=== PATIENT | male | born 1990 | race African-American/Black ===

== ENCOUNTER 2020-07-13 19:04 | Emergency (ER) | payer OTHER, SELFPAY ==
[2020-07-13 19:17] VITALS: BP 124/78; PULSE 66; RESP 20; TEMP 36.3; O2SAT 100
--- NOTE | 2020-07-13 19:54 | ED.GENADULT ---
HPI - General Adult General Chief complaint: Urogenital-Male <Armando Lim PA-C - Last Filed: 07/13/20 19:58> Stated complaint: exp to STD <Armando Lim PA-C - Last Filed: 07/13/20 19:58> Time Seen by Provider: 07/13/20 19:36 <Armando Lim PA-C - Last Filed: 07/13/20 19:58> Source: patient <Armando Lim PA-C - Last Filed: 07/13/20 19:58> Mode of arrival: ambulatory <Armando Lim PA-C - Last Filed: 07/13/20 19:58> Limitations: no limitations <Armando Lim PA-C - Last Filed: 07/13/20 19:58> History of Present Illness HPI narrative: Patient is a 29-year-old male who presents to emergency department for evaluation of concern for possible gonorrhea patient notes that he was with a sexual partner stating that she had gonorrhea and chlamydia patient notes he has had some slight discharge and irritation with urination. Patient denies fever vomiting or other complaints presents in no distress would like to be tested and treated for STDs <Armando Lim PA-C - Last Filed: 07/13/20 19:58> Related Data Allergies/adverse reactions: Allergies Allergy/AdvReac Type Severity Reaction Status Date / Time No Known Allergies Allergy Unverified 08/30/13 07:38 <Armando Lim PA-C - Last Filed: 07/13/20 19:58> Review of Systems Review of Systems: All systems reviewed & are unremarkable except as noted in HPI and below <Armando Lim PA-C - Last Filed: 07/13/20 19:58> [facility] Social History Social History: Social History (Updated 07/13/20 @ 19:55 by Armando Lim PA-C) Smoking status: Current every day smoker <Armando Lim PA-C - Last Filed: 07/13/20 19:58> Exam Narrative: Exam Narrative: GENERAL: Well-appearing, well-nourished, and in no acute distress. HEAD: Normocephalic, atraumatic. EYES: PERRLA and EOMI. ENT: Nares clear, no rhinorrhea or epistaxis. Mucous membranes moist. CHEST: Clear to auscultation. No respiratory distress. No wheezes rales or rhonchi HEART: Regular rate and rhythm. No murmur heard. EXTREMITIES: Normal range of motion. No edema. SKIN: Warm, dry, no rash. NEURO: No focal deficits. Alert and oriented x3. PSYCH: Normal mood and affect. <Armando Lim PA-C - Last Filed: 07/13/20 19:58> Course Course Emergency Course: Patient tested and treated for STDs afebrile nontoxic-appearing no distress will be discharged with outpatient follow-up agreeing to follow with primary care <Armando Lim PA-C - Last Filed: 07/13/20 19:58> Vital Signs Vital signs: Vital Signs Temperature 97.4 F L 07/13/20 19:17 Pulse Rate 66 07/13/20 19:17 Respiratory Rate 20 07/13/20 19:17 Blood Pressure 124/78 07/13/20 19:17 Pulse Oximetry 100 07/13/20 19:17 Temperature 97.4 F L 07/13/20 19:17 Pulse Rate 70 07/13/20 20:37 Respiratory Rate 18 07/13/20 20:37 Blood Pressure 119/75 07/13/20 20:37 Pulse Oximetry 99 07/13/20 20:37 <Armando Lim PA-C - Last Filed: 07/13/20 19:58> Vital Signs Temperature 97.4 F L 07/13/20 19:17 Pulse Rate 66 07/13/20 19:17 Respiratory Rate 20 07/13/20 19:17 Blood Pressure 124/78 07/13/20 19:17 Pulse Oximetry 100 07/13/20 19:17 Temperature 97.4 F L 07/13/20 19:17 Pulse Rate 70 07/13/20 20:37 Respiratory Rate 18 07/13/20 20:37 Blood Pressure 119/75 07/13/20 20:37 Pulse Oximetry 99 07/13/20 20:37 <Diamante Mcdermott MD - Last Filed: 07/17/20 06:59> Medical Decision Making MDM Narrative Medical decision making narrative: Patient tested and treated for urethritis will be discharged home felt appropriate for outpatient reevaluation <NIYA Zaragoza Last Filed: 07/13/20 19:58> Vital Signs Vital Signs: Vital Signs Temperature 97.4 F L 07/13/20 19:17 Pulse Rate 66 07/13/20 19:17 Respiratory Rate 20 07/13/20 19:17 Blood Pressure 124/78 07/13/20 19:17 Pulse Oximetry 100
[2020-07-13] MEDS: cefTRIAXone 250 MG VIAL 500 MG IM (20:28)
[2020-07-13 20:37] VITALS: BP 119/75; PULSE 70; RESP 18; O2SAT 99
== END 2020-07-13 20:39 | disposition home or self-care (01) ==
PROVIDERS: Emergency Medicine Emergency Medical Services; Emergency Provider General Practice; PCP Family Medicine
DX: N34.2 Other urethritis (principal); F17.200 Nicotine dependence, unspecified, uncomplicated
CPT/HCPCS: 87491; 87591; 96372; 99283; J0696

== ENCOUNTER 2020-09-06 16:31 | Outpatient (CLI) | payer OTHER, SELFPAY ==
--- NOTE | ~2020-09-06 | XR_ITS ---
EXAMINATION: XR shoulder RT min 2V DATE: 09/06/2020 16:53 INDICATION: Right shoulder pain. TECHNIQUE: 4 views of right shoulder were obtained. COMPARISON: None. FINDINGS: Bone alignment is normal. No fracture. There is mild osteoarthritis of acromioclavicular praveena int. Glenohumeral joint is normal. IMPRESSION: 1. Mild osteoarthritis of acromioclavicular joint. Reviewed, dictated and finalized at location A.
== END 2020-09-06 16:32 | disposition home or self-care (01) ==
PROVIDERS: PCP Nurse Practitioner Family; Visit Provider Nurse Practitioner Family
DX: M19.011 Primary osteoarthritis, right shoulder (principal)
CPT/HCPCS: 73030

== ENCOUNTER 2021-08-31 10:33 | Outpatient (CLI) | payer OTHER, SELFPAY ==
--- NOTE | ~2021-08-31 | XR_ITS ---
XR knee LT 3V DATE: 08/31/2021 11:02 INDICATION: Bilateral knee pain TECHNIQUE: AP, lateral, sunrise views COMPARISON: None FINDINGS: Mild superior pole patellar enthesopathy at insertion of quadriceps tendon. No fracture or dislocation or joint effusion. No periosteal reaction or bone destruction. There is mild periarticular spurring at the medial compartment. IMPRESSION: Mild superior pole patellar enthesopathy Mild osteoarthritis at medial compartment Reviewed, dictated and finalized at location A.
--- NOTE | ~2021-08-31 | XR_ITS ---
XR shoulder RT min 2V DATE: 08/31/2021 11:02 INDICATION: Acute right shoulder pain TECHNIQUE: 4 views COMPARISON: 09/06/2020 right shoulder FINDINGS: No fracture, dislocation, periosteal reaction or bone destruction or abnormal soft tissue c alcification. Normal alignment at the acromioclavicular and glenohumeral joints. IMPRESSION: Negative Reviewed, dictated and finalized at location A. IMPRESSION: Negative
--- NOTE | ~2021-08-31 | XR_ITS ---
XR knee RT 3V DATE: 08/31/2021 11:02 INDICATION: Acute right shoulder pain. Bilateral knee pain. TECHNIQUE: [place] and AP and lateral views COMPARISON: None FINDINGS: Superior pole patellar enthesopathy at quadriceps tendon insertion. No fracture or dislocation or joint effusion. No periosteal reaction or bone destruction. Joint spaces are relatively preserved. No radiopaque intra-articular loose body or chondrocalcinosis. IMPRESSION: Superior pole patellar enthesopathy Reviewed, dictated and finalized at location A.
== END 2021-08-31 10:34 | disposition home or self-care (01) ==
LOC: ANHIMG 10:38
PROVIDERS: PCP Internal Medicine; Visit Provider Internal Medicine
DX: M25.511 Pain in right shoulder (principal); M17.12 Unilateral primary osteoarthritis, left knee
CPT/HCPCS: 73030; 73562

== ENCOUNTER 2023-08-22 07:27 | Emergency (ER) | payer OTHER, SELFPAY ==
[2023-08-22 07:33] VITALS: BP 154/93; PULSE 71; RESP 18; TEMP 36.3; O2SAT 98
--- NOTE | 2023-08-22 07:43 | ED.MALEGU ---
HPI - Male Genitourinary General Chief complaint: Urogenital-Male Stated complaint: sti check Time Seen by Provider: 08/22/23 07:34 History of Present Illness HPI Narrative: Patient presents for STD testing and treatment, his partner found out she had chlamydia. Patient denies any dysuria, rash, penile discharge. States that he just feels weird down there Related Data Allergies Allergy/AdvReac Type Severity Reaction Status Date / Time No Known Allergies Allergy Unverified 08/30/13 07:38 Review of Systems Review of Systems: CONST: No fever. HEENT: No sore throat C/V: No chest pain RESP: No cough GI: No Abdominal pain : No dysuria. M/S: No joint pain. SKIN: No rash. NEURO: [No headache or focal numbness or weakness] PSYCH: [No depression] [facility] Social History Social History (Updated 07/13/20 @ 19:55 by Armando Lim, NIYA) Smoking status: Current every day smoker Exam Narrative: EXAMINATION OF ORGAN SYSTEMS/BODY AREAS: Constitutional: Vital signs per nursing GENERAL:[No acute distress, non-toxic appearing.] HEAD: Normal with no signs of head trauma. EYES: EOMI, conjunctiva normal ENT: Hearing grossly intact LUNGS: Nonlabored breathing. HEART: [Regular rate and rhythm] ABD: [Soft] nontender to palpation : With nurse underwear welter in room. No obvious lesions, penile discharge EXT: Normal range of motion SKIN: [No rashes or lesions.] NEURO: [Alert and oriented x 3. No gross focal sensory or strength deficits.] PSYCH: Normal affect Course Vital Signs Vital signs: Vital Signs Temperature 97.3 F L 08/22/23 07:33 Pulse Rate 71 08/22/23 07:33 Respiratory Rate 18 08/22/23 07:33 Blood Pressure 154/93 H 08/22/23 07:33 Pulse Oximetry 98 08/22/23 07:33 Temperature 97.3 F L 08/22/23 07:33 Pulse Rate 71 08/22/23 07:33 Respiratory Rate 18 08/22/23 07:33 Blood Pressure 154/93 H 08/22/23 07:33 Pulse Oximetry 98 08/22/23 07:33 MDM - Male Genitourinary MDM Narrative Medical decision making narrative: 32-year-old patient presents to the emergency department for STD testing. Denies any systemic symptoms. Exam unremarkable. GC/CT were sent for testing. Patient was treated empirically with ceftriaxone 500 mg IM, he states that he cannot take pills and would rather not have a week's worth of pills because he usually chews and swallows some, I did let him know that the alternative treatment is 1 dose of azithromycin here which may not be as effective as the week's worth but I would rather he be on medications and not, patient agreeable to this and I have let her know that he may need a recheck later per 40 P he resume sexual activity and he is agreeable to this and follow-up to PCP. They are counseled on safe sex practices and should follow up regarding results, and can return to ER for any worsening symptoms. Lab Data Labs: Urine Characteristics Clear Discharge Plan Discharge Clinical Impression: Exposure to sexually transmitted disease (STD) Patient Disposition: Home, Self-Care Condition: Stable Instructions: Antibiotic Form, Sexually Transmitted Diseases (ED), Safe Sex Practices (ED) Additional Instructions: Please follow-up with your primary care doctor, you may need testing and to make sure that your infection is cleared, practice safe sex, please do not have intercourse for at least a week until your infection is resolved, make sure that your partner is also tested and treated, you can always come back for any further issues. Prescriptions: Discontinued doxycycline hyclate 100 mg capsule 100 mg PO Q12H 7 Days Qty: 14 0RF No Action metronidazole [Flagyl] 500 mg tablet 500 mg PO Q8H 7 Days Qty: 21 0RF Follow-up/Referrals: Brennon,MD Carine [Primary Care Provider] -
[2023-08-22] MEDS: AZITHROMYCIN 250 MG TABLET 1000 MG PO (07:54)
[2023-08-22] MEDS: cefTRIAXone 500 MG VIAL IM (07:55)
[2023-08-22 08:12] LABS: Appearance Urine Clear (Clear); Bacteria Urine None Seen /hpf; Bilirubin Urine Negative (Negative); Blood Urine Negative (Negative); Color Urine Yellow (Yellow); Glucose Urine UA Negative (Negative); Ketones Urine Negative (Negative); Leukocyte Esterase Ur Trace LEU/UL (Negative); Nitrate Urine Negative (Negative); Non Pathogenic Casts 0-2; Protein Urine Negative (Negative); Specific Grav Ur 1.018 (1.001-1.035); Squamous Epithelial Cell Urine None Seen /hpf (Few); WBC Urine 0-5 /hpf (0-3)
[2023-08-22 08:19] LABS: Add Urine Microscopic? YES
[2023-08-22 09:39] LABS: Chlamydia trachomatis DETECTED (NOT DETECTE); Neisseria gonorrhoeae PCR NOT DETECTED (NOT DETECTE)
== END 2023-08-22 08:19 | disposition home or self-care (01) ==
PROVIDERS: Emergency Provider Emergency Medicine; PCP Internal Medicine
DX: Z20.2 Contact with and (suspected) exposure to infections with a predominantly sexual mode of transmission (principal); F17.200 Nicotine dependence, unspecified, uncomplicated
CPT/HCPCS: 81001; 87491; 87591; 96372; 99283; A9270; J0696